=== PATIENT | female | born 1985 | race Caucasian/White ===

== ENCOUNTER 2016-12-10 09:27 | Emergency (ER) | payer OTHER ==
[2016-12-10 09:32] VITALS: TEMP 97.7; BMI 29.8
--- NOTE | 2016-12-10 09:36 | PDOC ---
History of Present Illness - General Chief Complaint: Labor Assessment Stated Complaint: 30WKS PRESSURE ABDM - History of Present Illness Initial Comments: 12/10/16 14:20 Patient seen in triage, 30 weeks with lower abdominal pressure, no other complaints, not ill. Patient's OB is not on staff here. Patient states that she has had no problems with the . Patient is medically stable and cleared to be seen in the OB Department Past History - Past Medical History Allergies/Adverse Reactions: Allergies Allergy/AdvReac Type Severity Reaction Status Date / Time No Known Allergies Allergy Verified 12/10/16 09:32 Home Medications: Ambulatory Orders NK [No Known Home Medication] 07/04/16 Vit/Iron Fumarate/FA [ Tablet] 1 each PO DAILY 07/04/16 Other medical history: NONE - Psycho/Social/Smoking Cessation Hx Anxiety: No Suicidal Ideation: No Smoking Status: Yes Smoking History: Never smoked Have you smoked in the past 12 months: Yes Number of Cigarettes Smoked Daily: 2 If you are a former smoker, when did you quit?: 3 mths ago 'Breaking Loose' booklet given: 07/07/15 Hx Alcohol Use: No Drug/Substance Use Hx: No Substance Use Type: None *Physical Exam - Vital Signs Last Vital Signs Temp Pulse Resp BP Pulse Ox 97.7 F 84 20 114/68 99 12/10/16 09:30 12/10/16 09:30 12/10/16 09:30 12/10/16 09:30 12/10/16 09:30 *DC/Admit/Observation/Transfer Diagnosis at time of Disposition: Premature labor - Discharge Dispostion Disposition: HOME Condition at time of disposition: Stable - Referrals Referrals: Zack Mason MD [Staff Physician] - - Patient Instructions Additional Instructions: Patient from ED c/o supra-pubic pressure. Ve by reveals a closed cx. BPP 02/27. D/c patient home as per . Instruction given as to when to return to hospital. Keep f/u apt. Patient verbalized understanding. Print Language: SYRIAC
[2016-12-10 12:25] VITALS: BP 110/66; PULSE 93
== END 2016-12-10 12:50 | disposition home or self-care (01) ==
LOC: JER 09:27
DX: O60.03 Preterm labor without delivery, third trimester (principal); Z3A.30 30 weeks gestation of pregnancy
CPT/HCPCS: 76819-TC; 99281-25

== ENCOUNTER 2017-02-08 05:52 | Inpatient (IN) | payer OTHER ==
[2017-02-08 06:55] VITALS: BMI 30.7
[2017-02-08] MEDS ORDERED: ELECTROLYTE-148 SOLN 1,000 ML IV ONE (07:00)
[2017-02-08] MEDS ORDERED: morphine SULFATE/Preservative Free 0.5 MG/ML (1cc Syringe) EP ONE (07:55)
[2017-02-08] MEDS ORDERED: ONDANSETRON 4 MG/2 ML VIAL IVPB PRN (07:55)
[2017-02-08] MEDS ORDERED: CITRIC ACID/SODIUM CITRATE 30 ML UNIT-DOSE CUP PO ONE (08:00)
--- NOTE | 2017-02-08 08:11 | HP ---
Past Medical History - Primary Care Physician PCP:: Vilma Willis - Admission Chief Complaint: 31 yrs , 39 weeks , previous c/sx2, requests repeat c/s & tubal ligation History of Present Illness: pnc transferred from [facility] to [address] [place] [address] wt gain 5lbs Work Up O Pos, Rpr nr, Hbsag neg,Hep C neg, Rubella pos,, Gbs pos, Hiv neg Ppd unknown, 1hr Gtt 57, AFP test neg. Genetic Counselling done , declined NIPT Growth sono done at [facility] Last sono done at [facility] mf off, on 01/22/17 reported SLIUP Vx, Plaenta Post 36.4/ 7 weeks , 38%tile growth(2657gm), Bpp 02/27 History Source: Patient, Medical Record Limitations to Obtaining History: No Limitations - Past Medical History ELECTRONICS TESTER: No: Migraine, Seizure Cardiovascular: No: HTN Pulmonary: No: Asthma Renal/: No: UTI ...: 5 ...Para: 2 ...Term: 2 ...Induced : 2 ...LMP: 04/20/16 ... Weeks Gestation by Dates: 42 ...EDC by Dates: 01/25/17 ...EDC by Sono: 02/15/17 Additional OB History: G1 1999 Ind Ab. G2 03/23/2008 Primary C/Section 6''4 "girl, [facility]. G3 2008 Ind Ab. G4 02/26/2013 Repeat C/Sect 7'7" girl [facility]. Note : patient has different OB history documented at [facility] places in the chart, (2 c/s , 2 ind ab, 1 sp ab , or (2 c/s 3 ind ab , 1 sp ab ) Heme/Onc: Yes: Anemia Infectious Disease: No: AIDS, HIV, STD's Psych: No: Addictions, Anxiety, Bipolar, Depression Endocrine: No: Diabetes Insipidus, Diabetes Mellitus, Hyperparathyroidism, Hyperthyroidism, Hypothyroidism - Past Surgical History Past Surgical History: Yes: None, (2007 & 2012), Tonsillectomy ( adenectomy, myringotomy) Hx Myomectomy: No Hx Transabdominal Cerclage: No - Smoking History Smoking history: Never smoked Have you smoked in the past 12 months: No Aproximately how many cigarettes per day: 2 If you are a former smoker, when did you quit?: 3 mths ago - Alcohol/Substance Use Hx Alcohol Use: No History of Substance Use: reports: None Home Medications - Allergies Allergies/Adverse Reactions: Allergies Allergy/AdvReac Type Severity Reaction Status Date / Time tomato Allergy Severe Hives Verified 02/08/17 06:56 - Home Medications Home Medications: Ambulatory Orders NK [No Known Home Medication] 07/04/16 Vit/Iron Fumarate/FA [ Tablet] 1 each PO DAILY 07/04/16 Physical Exam - Maternity Vital Signs: Vital Signs Temperature 97.8 F 02/08/17 06:30 Pulse Rate 88 02/08/17 06:30 Respiratory Rate 18 02/08/17 06:30 Blood Pressure 118/59 02/08/17 06:30 O2 Sat by Pulse Oximetry (%) Selected Entries 02/08/17 06:30 Weight 190 lb Constitutional: Yes: Well Nourished Eyes: Yes: WNL HENT: Yes: WNL, Normocephalic Neck: Yes: WNL Cardiovascular: Yes: WNL, Regular Rate and Rhythm Lungs: Clear to auscultation Breast(s): Yes: WNL - Abdominal Exam/OB Fundal Height: 40 Number of Fetuses: Single Presentation: Vertex Contractions: Yes Regularity: Irregular Intensity: Unaware Monitor Mode: External Heart Rate (range): 130-140 Heart Rate Location: [facility] Category: I Accelerations: Uniform - Vaginal Exam/OB Vaginal Bleediing: No Dilatation (cm): close Effacement (%): unefface Presentation: Vertex/Position Station: -3 - Physical Exam Musculoskeletal: Yes: WNL Extremities: Yes: WNL. No: Calf Tenderness Edema: Yes Edema: RLE: 1+ Integumentary: Yes: WNL, Incision (old pfannensteil scar), Tattoos Deep Tendon Reflex Grade: Normal +2 ...Motor Strength: WNL Psychiatric: Yes: WNL, Alert, Oriented - Labs Lab Results: Laboratory Tests 06/05/11 06/05/11 02/05/17 22:45 22:45 13:51 WBC 8.0 Hgb 12.2 Hct 36.7 Plt Count 126 L D Lymphocytes # 16.7 D INR Serum Potassium 4.0 Sodium Potassium Chloride Carbon Dioxide BUN Creatinine Random Glucose AST ALT 02/05/17 02/05/17 13:51 13:51 WBC Hgb Hct Plt Count Lymphocytes # INR 1.01 Serum Potassium Sodium 136 Potassium 3.7 Chloride 104 Carbon Dioxide 22 BUN 8 Creatinine 0.6 Random Glucose 84 AST 13 L D ALT 14 D Problem List - Problems (1) with 39 completed weeks gestation Code(s): Z3A.39 - 39 WEEKS GESTATION OF (2) Previous section complicating Code(s): O34.219 - MATERNAL CARE FOR UNSP TYPE SCAR FROM PREVIOUS DEL (3) Positive GBS test Code(s): B95.1 - STREPTOCOCCUS, GROUP B, CAUSING DISEASES CLASSD ELSWHR (4) Multiparity Code(s): Z64.1 - PROBLEMS RELATED TO MULTIPARITY Assessment/Plan 31 yrs , 39 weeks , previous c/s x2 , requests for repeat c/s & voluntory sterlization Gbs pos plan ; repeat c/section & BTL
[2017-02-08] MEDS ORDERED: METHYLERGONOVINE MALEATE 0.2 MG/1 ML AMP IM PRN (10:03)
--- NOTE | 2017-02-08 10:13 | PN ---
Delivery - Delivery Section: Repeat, Low Flap Transverse (BTL) Type of Anesthesia: Spinal Episiotomy/Laceration: None EBL (cc): 500 (zaman output 200 ml amelia color ) Delivery, Single - Stages of Labor Date of Delivery: 02/08/17 Time of Delivery: 08:29 Time Placenta Delivered: 08:30 Placenta: Yes: Manual Removal, Uterine Exploration - Condition of Infant Telecommunications Support/Downstairs Maid Present: Yes Name: Dave Gifford Gender: Male Weight: 6 lb 14 oz Position: Left, OT Total Hours ROM (Hrs/Mins): 0hrs 2min - 1 Minute Total Score: 9 5 Minutes Total Score: 9 - [place] Feeding Plan Initial Plan: Elected not to breastfeed exclusively throughout hospitalization Remarks - Remarks Remarks: 31 yrs , 39 weeks , Previous c/s x2, requests Voluntary sterilization Gbs test pos care transferred from [facility] to [address] Intra op course uneventful iv Ancef 1 gm intra op given
--- NOTE | 2017-02-08 10:20 | OP ---
Operative Note - Note: Operative Date: 02/08/17 Pre-Operative Diagnosis: 39 weeks , previous c/sx2, vountary Sterlization Operation: Repeat LFTC/Section & BTL Findings: 8.29 AM , baby Boy, Vx LOT position, 9/9, Wt 6'14' Both tubes & ovaries normal Both tubes ligated , cut cauterized by Modified [place] technique in mid ampulary portion of tubes Dr Gifford Remediation Project Engineer present in the room Surgeon: Vilma Willis Clinical Neuropsychologist: Isaiah Rubio Anesthesiologist/SENIOR UI UX DEVELOPER: Truong Campos Anesthesia: Spinal Specimens Removed: Cord blood. Placenta. Portion of Rt tube. Portion of Lt Tube Estimated Blood Loss (mls): 500 Drains, Volume Out (mls): 200 (amelia color , zaman out put ) Fluid Volume Replaced (mls): 1,000 (iv Ancef1 gm prior to incision) Operative Report Dictated: Yes
[2017-02-08] MEDS ORDERED: TUBERCULIN PPD 5 TU/0.1ML SYRINGE (IN PATIENT USE ONLY) ID ONE (13:00)
[2017-02-08] MEDS ORDERED: OXYTOCIN 20 UNITS in 0.9% NS 1,000 ML IV SCH (16:15)
[2017-02-08] MEDS: CEFAZOLIN (PRE-DOCKED) 50 ML IVPB SCH (17:23)
[2017-02-08] MEDS: IBUPROFEN 800 MG/8 ML IJ IVPB PRN (18:14)
[2017-02-08] MEDS ORDERED: SENNOSIDES/DOCUSATE COMBO (SENNA PLUS) TABLET (UD) PO PRN (22:00)
[2017-02-09] MEDS: CEFAZOLIN (PRE-DOCKED) 50 ML IVPB SCH ×2 (01:20→09:23)
[2017-02-09] MEDS: IBUPROFEN 800 MG/8 ML IJ IVPB PRN (01:20)
[2017-02-09 08:01] LABS: BASOPHIL 0.4 % (0-2.0); EOSINOPHIL 1.7 % (0-4.5); MCH 30.2 pg (25.7-33.7); MCHC 33.5 g/dl (32.0-36.0); MEAN CELL VOLUME 90.2 fl (80-96); NEUTROPHILS 73.4 % (42.8-82.8); PLATELET COUNT 91 K/MM3 (134-434); RDW 15.3 % (11.6-15.6); WHITE BLOOD COUNT 9.4 K/mm3 (4.0-10.0)
--- NOTE | 2017-02-09 08:12 | PN ---
Progress Note (short form) - Note Progress Note: pod 1 doing well,has mild cramps Last Vital Signs Temp Pulse Resp BP Pulse Ox 97.9 F 83 18 117/57 100 02/09/17 07:42 02/09/17 07:42 02/09/17 07:56 02/09/17 07:42 02/08/17 10:05 abdomen soft, mild incisional tenderness , no cva incision dry, clean no calf tenderness no excess vaginal bleeding plan ambulate, cbc, advance diet
--- NOTE | 2017-02-09 08:23 | OP ---
DATE OF OPERATION: 02/08/2017 PREOPERATIVE DIAGNOSIS: 39 weeks, previous section x2, voluntary sterilization. OPERATION DONE: Repeat low-flap transverse section and bilateral tubal ligation. SURGEON: Vilma Willis MD EXCHANGE MECHANIC SURGEON: BREN Gaines ANESTHESIOLOGIST: Lalito Campos MD ANESTHESIA: Spinal. FINDINGS: This is a 31-year-old, 5, para 2-0-2-2, 39 weeks , not in labor, and she also requests for sterilization. PROCEDURE: Patient is taken to the operating room table. Abdi catheter was placed. The abdomen was painted and draped in usual manner. Spinal anesthesia was given. Prior to the spinal anesthesia, abdomen was shaved and prepped. After prepping and draping the abdomen, the level of anesthesia was checked, and then, the Pfannenstiel incision was made through previous scar, skin and subcutaneous tissue. Anterior rectus sheath was incised transversely, and rectus muscles were laterally. Parietal peritoneum was opened vertically. Lower flap of the peritoneum was incised transversely, and the bladder was pushed down. Lower uterine segment was incised transversely. Amniotic fluid was cleared. Baby was delivered at 8:29 a.m. from LOT position, baby boy. was 9, 9. Cord was clamped, cut, and the baby was handed over to Dr. Gifford, the condenser setter. Baby's weight was 6 pounds 14 ounces. Cord blood was collected. Placenta was removed completely with the membranes. Uterine cavity was cleaned, and then, the closure of the uterine incision was done. First layer was closed with Biosyn 0 continuous locking sutures were taken. Second layer was closed with a Biosyn 0 suture in intermittent locking in vertical mattress sutures were taken. Hemostasis was verified, and then, both the ovaries were normal. Both tubes were normal. First right tube and then the left tube were ligated in the mid-ampullary portion. The tube was doubly ligated with a plain 2-0 suture, and then, above the ligature, the portion of the tube was cut and sent for pathology examination, and the endosalpinx was cauterized. Hemostasis was noted, and this procedure was done on both sides. Portion of the tube was sent for pathology examination. Irrigation was done, and then, the sponge, instrument, and needle count was correct. Closure of the abdomen was done. Parietal peritoneum was closed with a Biosyn 0. Continuous sutures were taken. Then, muscles were approximated together with Biosyn 0 interrupted sutures. Hemostasis was checked underneath the rectus sheath flap. Also, hemostasis was verified. Then, anterior rectus sheath was closed with 0 Vicryl suture. Continuous sutures were taken. Then, hemostasis was checked in the subcutaneous tissue. Subcutaneous tissue was mobilized from the scar from the incision, and then, the subcutaneous tissue was also approximated with interrupted sutures with Vicryl 0 suture. Hemostasis was noted and subcutaneous tissue irrigation done. Then, the skin was approximated with karen. Pressure dressing was given. Blood clots were removed from the vagina. Estimated blood loss was 500 mL. Intraoperative urine output was 200 mL, amelia color. She received 1 g of IV Ancef prior to the incision, and estimated blood loss was 500 mL. She was transferred to the recovery room in stable condition. Patricia [id number]
[2017-02-09] MEDS: PRENATAL VITAMINS W/ FOLIC ACID TABLET (FP) PO SCH (09:23)
[2017-02-09] MEDS: ENOXAPARIN NA (PORCINE) 40 MG/0.4 ML DISP.SYRIN SQ SCH (09:23)
--- NOTE | 2017-02-09 09:25 | PN ---
Progress Note (short form) - Note Progress Note: ANESTHESIOLOGY POST-OP CHECK 31F s/p under spinal anesthesia, POD #1. No acute complaints. Pain 5/ 10 and tolerable. Tolerating PO, ambulating, voiding, denies N/V, headache. Vital Signs Temperature 97.9 F 02/09/17 07:42 Pulse Rate 83 02/09/17 07:42 Respiratory Rate 18 02/09/17 07:56 Blood Pressure 117/57 02/09/17 07:42 O2 Sat by Pulse Oximetry (%) 100 02/08/17 10:05 Active Medications Acetaminophen (Tylenol -) 650 mg PO Q4H PRN PRN Reason: FEVER OR PAIN Bisacodyl (Dulcolax Suppository -) 10 mg RC PRN PRN PRN Reason: CONSTIPATION Diphenhydramine HCl (Benadryl Injection -) 25 mg IVPUSH Q4H PRN PRN Reason: Pruritis Last Admin: 02/08/17 22:35 Dose: 25 mg Enoxaparin Sodium (Lovenox -) 40 mg SQ DAILY HELGA Last Admin: 02/09/17 09:23 Dose: 40 mg Ferrous Sulfate (Feosol -) 325 mg PO BID HELGA Cefazolin Sodium (Ancef 1gm Ivpb (Pre-Docked)) 50 mls @ 100 mls/hr IVPB Q8H-IV HELGA Stop: 02/09/17 17:59 Last Admin: 02/09/17 09:23 Dose: 100 mls/hr Oxytocin/Sodium Chloride (Normal Saline+20 Units Oxytocin -) 1,000 mls @ 125 mls/hr IV ASDIR HELGA Last Admin: 02/08/17 17:23 Dose: 125 mls/hr Ibuprofen (Caldolor Injection -) 600 mg IVPB Q8H PRN PRN Reason: FEVER Last Admin: 02/09/17 01:20 Dose: 600 mg Ibuprofen (Motrin -) 600 mg PO Q4H PRN PRN Reason: PAIN Methylergonovine Maleate (Methergine Injection -) 0.2 mg IM Q4H PRN PRN Reason: Excessive Bleeding (L&D) Oxycodone HCl (Roxicodone -) 5 mg PO Q4H PRN PRN Reason: PAIN LEVEL 1-5 Oxycodone HCl (Roxicodone -) 10 mg PO Q4H PRN PRN Reason: PAIN LEVEL 6-10 Multivit/Folic Acid/Iron ( Vitamins (Sjr) -) 1 tab PO DAILY HELGA Last Admin: 02/09/17 09:23 Dose: 1 tab Senna/Docusate Sodium (Pericolace -) 2 tablet PO HS PRN PRN Reason: CONSTIPATION Simethicone (Mylicon -) 80 mg PO Q4H PRN PRN Reason: GAS Gen: awake, alert, NAD No apparent anesthesia complications. Pain controlled. Continue management as per primary team.
[2017-02-09] MEDS ORDERED: oxyCODONE HCL 5 MG TABLET PO PRN (10:03)
[2017-02-09] MEDS ORDERED: BISACODYL 10 MG SUPP.RECT RC PRN (10:03)
[2017-02-09] MEDS: SIMETHICONE 80 MG TAB.CHEW (FP) PO PRN ×2 (13:12→21:43)
[2017-02-09] MEDS: IBUPROFEN 600 MG TABLET (FP) PO PRN (13:13)
--- NOTE | 2017-02-09 18:17 | DS ---
Physical Exam-COTTON PICKER OPERATOR Vital Signs: Vital Signs Temperature 97.9 F 02/09/17 07:42 Pulse Rate 83 02/09/17 07:42 Respiratory Rate 18 02/09/17 07:56 Blood Pressure 117/57 02/09/17 07:42 O2 Sat by Pulse Oximetry (%) 100 02/08/17 10:05 Constitutional: Yes: Well Nourished, Obese Eyes: Yes: WNL HENT: Yes: WNL, Normocephalic Neck: Yes: WNL Cardiovascular: Yes: WNL, Regular Rate and Rhythm Respiratory: Yes: WNL, Regular, CTA Bilaterally Gastrointestinal: Yes: WNL, Normal Bowel Sounds, Soft. No: Distention ...Rectal Exam: Yes: WNL Renal/: Yes: WNL, Other (voiding without difficulty) ....Post : Yes: Uterus firm, Uterus non-tender, Moderate lochia rubra Breast(s): Yes: WNL Musculoskeletal: Yes: WNL Extremities: Yes: WNL. No: Calf Tenderness Integumentary: Yes: WNL, Tattoos Wound/Incision: Yes: Clean/Dry, Well Approximated, [place] Intact, Open to air Neurological: Yes: WNL, Alert, Oriented ...Motor Strength: WNL Psychiatric: Yes: WNL, Alert, Oriented Labs: CBC, BMP 02/09/17 06:00 Delivery - Delivery Section: Repeat, Low Flap Transverse (BTL) Type of Anesthesia: Spinal Episiotomy/Laceration: None EBL (cc): 500 (zaman output 200 ml amelia color ) Delivery, Single - Stages of Labor Date of Delivery: 02/08/17 Time of Delivery: 08:29 Time Placenta Delivered: 08:30 Placenta: Yes: Manual Removal, Uterine Exploration - Condition of Infant Cash Applications Analyst/Stitcher Utility Present: Yes Name: Dave Gifford Gender: Male Weight: 6 lb 14 oz Position: Left, OT Total Hours ROM (Hrs/Mins): 0hrs 2min - 1 Minute Total Score: 9 5 Minutes Total Score: 9 - [place] Feeding Plan Initial Plan: Elected not to breastfeed exclusively throughout hospitalization Remarks - Remarks Remarks: 31 yrs , 39 weeks , Previous c/s x2, requests Voluntary sterilization Gbs test pos care transferred from [facility] to , [facility] Intra op course uneventful iv Ancef 1 gm intra op given post op course uneventful to be discharge on po day #4 Discharge Summary Reason For Visit: SCHEDULE C/SECTION Current Active Problems Delivery by (planned) section occurring after 37 completed weeks of gestation but before 39 completed weeks gestation due to (spontaneous) onset of labor, with mention of complication (Acute) Multiparity (Acute) Positive GBS test (Acute) with 39 completed weeks gestation (Acute) Previous section complicating (Acute) Tubal ligation status (Acute) - Instructions Diet, Activity, Other Instructions: Post Instructions DIET: Continue good diet high in protein, calcium, and iron rich foods. Drink at least eight (8) glasses of water daily in addition to other fluids. ct Regular diet MEDICATIONS: Continue vitamins and iron as previously directed. Motrin and Tylenol may be taken for minor discomfort. ACTIVITY: Mild to moderate exercise may be started in two (2) weeks. Take frequent rest periods. Resume normal activity after six (6) week check up. WOUND CARE OF OPERATIVE SITE: Continue use of perineal bottle until vaginal discharge stops. Keep area clean. Shower daily. Keep abdominal wound dry. Report any drainage or redness to physician. Tub baths, tampons and douches are not permitted for [address] Breast feeding & or Bottle feeding BREAST CARE: (For those that are not breast feeding): If engorgement occurs: Wear tight fitting bra. Take Tylenol or Motrin for pain. Apply cold packs (ice in bags to each breast ) FAMILY PLANNING: There are many control alternatives to pursue and they should be discussed at your first office visit. You may resume sexual activity after your six (6) week check up. (Remember, breast feeding is not a contraceptive) NEXT PHYSICIAN APPOINTMENT: Be certain to call for a one (1) week appointment, unless otherwise directed. Go to the clinic for karen Removal & wound check Call Clinic or got to Emergency Dept if you have any of the following: Heavy vaginal bleeding Painful urination Leg pain Unusual odor noted to vaginal bleeding High fever Red streaking noted on breast Referrals: Vilma Willis MD [Staff Physician] - - Home Medications Comprehensive Discharge Medication List: Ambulatory Orders Vit/Iron Fumarate/FA [ Tablet] 1 each PO DAILY 07/04/16 Acetaminophen [Tylenol .Regular Strength -] 650 mg PO Q4H PRN #0 tablet Ibuprofen [Motrin -] 600 mg PO Q4H PRN #30 tablet 02/08/17 Vitamins (Sjr) - 1 tab PO DAILY tablet 02/08/17
[2017-02-09] MEDS: oxyCODONE HCL 5 MG TABLET PO PRN (21:43)
[2017-02-09] MEDS: FERROUS SO4 325 MG TABLET (FP) PO SCH (21:43)
[2017-02-09] MEDS: ACETAMINOPHEN 325 MG TABLET (FP) PO PRN (21:44)
[2017-02-10] MEDS: IBUPROFEN 600 MG TABLET (FP) PO PRN (00:03)
[2017-02-10] MEDS: oxyCODONE HCL 5 MG TABLET PO PRN ×3 (03:52→19:58)
[2017-02-10] MEDS: ACETAMINOPHEN 325 MG TABLET (FP) PO PRN ×3 (03:53→19:59)
[2017-02-10] MEDS: SIMETHICONE 80 MG TAB.CHEW (FP) PO PRN ×3 (03:53→19:59)
--- NOTE | 2017-02-10 07:59 | PN ---
Post Progress Note - Subjective Subjective: 31 yo Para 3 status post repeat , seen and evaluated. Doing well, no complaints. Post Day: 2 Type of Delivery: Repeat C/S Vital Signs: Vital Signs Temperature 98.7 F 02/09/17 22:00 Pulse Rate 96 H 02/09/17 22:00 Respiratory Rate 18 02/09/17 22:00 Blood Pressure 102/61 02/09/17 22:00 O2 Sat by Pulse Oximetry (%) 100 02/08/17 10:05 Breast Exam: Yes: Soft Abdomen/GI: Yes: Abdomen soft, Tolerating PO Lochia: Yes: Rubra Lochia, amount: Small Extremities: Yes: Calves non-tender Perineum: Yes: Intact Activity: Ambulating - Labs Labs: CBC WBC 9.4 K/mm3 (4.0-10.0) 02/09/17 06:00 RBC 3.80 M/mm3 (3.60-5.2) 02/09/17 06:00 Hgb 11.5 GM/dL (10.7-15.3) 02/09/17 06:00 Hct 34.3 % (32.4-45.2) 02/09/17 06:00 MCV 90.2 fl (80-96) 02/09/17 06:00 MCH 30.2 pg (25.7-33.7) 02/09/17 06:00 MCHC 33.5 g/dl (32.0-36.0) 02/09/17 06:00 RDW 15.3 % (11.6-15.6) 02/09/17 06:00 Plt Count 91 K/MM3 (134-434) L D 02/09/17 06:00 MPV 11.0 fl (7.5-11.1) 02/09/17 06:00 Neutrophils % 73.4 % (42.8-82.8) 02/09/17 06:00 Lymphocytes % 17.5 % (8-40) D 02/09/17 06:00 Monocytes % 7.0 % (3.8-10.2) 02/09/17 06:00 Eosinophils % 1.7 % (0-4.5) 02/09/17 06:00 Basophils % 0.4 % (0-2.0) 02/09/17 06:00 Assessment/Plan Status post repeat Stable Continue routine Postop care
[2017-02-10] MEDS: ENOXAPARIN NA (PORCINE) 40 MG/0.4 ML DISP.SYRIN SQ SCH (09:50)
[2017-02-10] MEDS: PRENATAL VITAMINS W/ FOLIC ACID TABLET (FP) PO SCH (09:50)
[2017-02-10] MEDS: FERROUS SO4 325 MG TABLET (FP) PO SCH ×2 (09:52→22:00)
[2017-02-11] MEDS: SIMETHICONE 80 MG TAB.CHEW (FP) PO PRN ×4 (00:30→21:14)
[2017-02-11] MEDS: ACETAMINOPHEN 325 MG TABLET (FP) PO PRN ×4 (00:30→21:15)
[2017-02-11] MEDS: oxyCODONE HCL 5 MG TABLET PO PRN ×2 (00:30→06:43)
[2017-02-11 08:39] LABS: BASOPHIL 0.5 % (0-2.0); EOSINOPHIL 3.7 % (0-4.5); MCH 29.9 pg (25.7-33.7); MCHC 32.8 g/dl (32.0-36.0); MEAN CELL VOLUME 90.9 fl (80-96); MEAN PLT VOLUME 11.8 fl (7.5-11.1); NEUTROPHILS 58.9 % (42.8-82.8); PLATELET COUNT 107 K/MM3 (134-434); RDW 15.6 % (11.6-15.6); WHITE BLOOD COUNT 8.2 K/mm3 (4.0-10.0)
--- NOTE | 2017-02-11 08:50 | PN ---
Post Progress Note - Subjective Subjective: 31 yo Para 3, status post repeat , seen and evaluated. She c/o incision pain. She's ambulating. Post Day: 3 Type of Delivery: Repeat C/S Vital Signs: Vital Signs Temperature 98.9 F 02/10/17 20:20 Pulse Rate 94 H 02/10/17 20:20 Respiratory Rate 20 02/10/17 20:20 Blood Pressure 110/67 02/10/17 20:20 O2 Sat by Pulse Oximetry (%) 100 02/08/17 10:05 Breast Exam: Yes: Soft Uterus: Yes: Fundus Firm Incision: Yes: [place] intact Abdomen/GI: Yes: Abdomen soft, Tolerating PO Lochia: Yes: Rubra Lochia, amount: Small Extremities: Yes: Calves non-tender Perineum: Yes: Intact Activity: Ambulating - Labs Labs: CBC WBC 8.2 K/mm3 (4.0-10.0) 02/11/17 07:45 RBC 3.61 M/mm3 (3.60-5.2) 02/11/17 07:45 Hgb 10.8 GM/dL (10.7-15.3) 02/11/17 07:45 Hct 32.8 % (32.4-45.2) 02/11/17 07:45 MCV 90.9 fl (80-96) 02/11/17 07:45 MCH 29.9 pg (25.7-33.7) 02/11/17 07:45 MCHC 32.8 g/dl (32.0-36.0) 02/11/17 07:45 RDW 15.6 % (11.6-15.6) 02/11/17 07:45 Plt Count 107 K/MM3 (134-434) L 02/11/17 07:45 MPV 11.8 fl (7.5-11.1) H 02/11/17 07:45 Neutrophils % 58.9 % (42.8-82.8) 02/11/17 07:45 Lymphocytes % 30.4 % (8-40) D 02/11/17 07:45 Monocytes % 6.5 % (3.8-10.2) 02/11/17 07:45 Eosinophils % 3.7 % (0-4.5) D 02/11/17 07:45 Basophils % 0.5 % (0-2.0) 02/11/17 07:45 Assessment/Plan Status post repeat Stable Continue routine Postop care
[2017-02-11] MEDS: PRENATAL VITAMINS W/ FOLIC ACID TABLET (FP) PO SCH (10:10)
[2017-02-11] MEDS: ENOXAPARIN NA (PORCINE) 40 MG/0.4 ML DISP.SYRIN SQ SCH (10:10)
[2017-02-11] MEDS: FERROUS SO4 325 MG TABLET (FP) PO SCH ×2 (10:11→21:05)
[2017-02-11] MEDS: IBUPROFEN 600 MG TABLET (FP) PO PRN ×2 (14:21→21:15)
[2017-02-12] MEDS: PRENATAL VITAMINS W/ FOLIC ACID TABLET (FP) PO SCH (10:11)
[2017-02-12] MEDS: FERROUS SO4 325 MG TABLET (FP) PO SCH (10:11)
[2017-02-12] MEDS: ENOXAPARIN NA (PORCINE) 40 MG/0.4 ML DISP.SYRIN SQ SCH (10:11)
--- NOTE | 2017-02-12 10:19 | PN ---
Post Progress Note - Subjective Subjective: 31 yo status post repeat , seen and evaluated. She requests staple removal before discharge. Osbaldo removed Steri strips placed PE : + partial open wound on the right side No signs of infection + incision pain A/P : Status post repeat Stable D/C Home F/U in clinic in one week for wound care Post Day: 4 Type of Delivery: Repeat C/S Vital Signs: Vital Signs Temperature 98.0 F 02/11/17 21:04 Pulse Rate 70 02/11/17 21:04 Respiratory Rate 20 02/11/17 21:04 Blood Pressure 125/64 02/11/17 21:04 O2 Sat by Pulse Oximetry (%) 100 02/08/17 10:05 Breast Exam: Yes: Soft Uterus: Yes: Fundus Firm Incision: Yes: Other (Osbaldo removed) Lochia: Yes: Rubra Lochia, amount: Small Extremities: Yes: Calves non-tender Perineum: Yes: Intact Activity: Ambulating - Labs Labs: CBC WBC 8.2 K/mm3 (4.0-10.0) 02/11/17 07:45 RBC 3.61 M/mm3 (3.60-5.2) 02/11/17 07:45 Hgb 10.8 GM/dL (10.7-15.3) 02/11/17 07:45 Hct 32.8 % (32.4-45.2) 02/11/17 07:45 MCV 90.9 fl (80-96) 02/11/17 07:45 MCH 29.9 pg (25.7-33.7) 02/11/17 07:45 MCHC 32.8 g/dl (32.0-36.0) 02/11/17 07:45 RDW 15.6 % (11.6-15.6) 02/11/17 07:45 Plt Count 107 K/MM3 (134-434) L 02/11/17 07:45 MPV 11.8 fl (7.5-11.1) H 02/11/17 07:45 Neutrophils % 58.9 % (42.8-82.8) 02/11/17 07:45 Lymphocytes % 30.4 % (8-40) D 02/11/17 07:45 Monocytes % 6.5 % (3.8-10.2) 02/11/17 07:45 Eosinophils % 3.7 % (0-4.5) D 02/11/17 07:45 Basophils % 0.5 % (0-2.0) 02/11/17 07:45 Assessment/Plan Status post repeat Stable D/C Home
[2017-02-12] MEDS ORDERED: diphenhydrAMINE HCL 25 MG CAPSULE (FP) PO ONE (10:20)
[2017-02-12 10:32] VITALS: BP 114/78; PULSE 84; TEMP 98.3
--- NOTE | 2017-02-12 16:02 | PATH ---
Surgical Pathology Report Patient Name: TERI OLSEN [facility]. Rec. #: [id number] /Age/Gender: 1985 (Age: 31) / F Account: [id number] Location: [facility] OBS/DIRECTOR OF RESIDENCE LIFE Taken: 02/08/2017 Received: 02/09/2017 Reported: 02/12/2017 Physicians: Vilma Willis M.D. Specimen(s) Received A: PLACENTA B: PORTION OF LEFT FALLOPIAN TUBE C: PORTION OF RIGHT FALLOPIAN TUBE Clinical History Final Diagnosis A. PLACENTA, DELIVERY: SMALL (368 GRAM) FOCALLY DISRUPTED THIRD TRIMESTER PLACENTA WITH INTERVILLOUS FIBRIN DEPOSITION, 3 VESSEL UMBILICAL CORD, AND UNREMARKABLE PLACENTAL MEMBRANES. B. LEFT FALLOPIAN TUBE, PARTIAL SALPINGECTOMY: FULL LUMINAL PORTION OF UNREMARKABLE FALLOPIAN TUBE C. RIGHT FALLOPIAN TUBE, PARTIAL SALPINGECTOMY: FULL LUMINAL PORTION OF UNREMARKABLE FALLOPIAN TUBE. Electronically Signed Elier Hearn M.D. Gross Description A. The specimen is received fresh labeled placenta and is a 368 gram, 16.5 x 15.0 x 2.0 cm. placenta with attached membranes and umbilical cord. The attached membranes are abarca, translucent and focal opacities and insert marginally. The umbilical cord measures 30 cm. in length and averages 1.2 cm. in diameter. The cord inserts eccentrically, 3.5 cm. to the nearest margin. No true knots or strictures are identified. Cut surface of the umbilical cord reveals 3 vessels. The surface is rhodes-blue with minimal fibrin deposition and appropriate caliber vessels. The maternal surface is red-brown with focal defects. Sectioning reveals red-brown, spongy parenchyma. No lesions are identified. Coordinating Producer sections are submitted in three cassettes as follows: 1- membrane rolls and umbilical cord; 2-3- full thickness sections of placenta. B. Received fresh labeled "portion of left fallopian tube," is a 1.2 cm in length portion of fallopian tube. No fimbria are present. The outer surface is abarca-pink and smooth. Sectioning reveals unremarkable lumen. Coordinating Producer sections are submitted in one cassette. C. Received fresh labeled "portion of right fallopian tube," is a 1.4 cm in length portion of fallopian tube. No fimbria are present. The outer surface is abarca-pink and smooth. Sectioning reveals an unremarkable lumen. Coordinating Producer sections are submitted in one cassette. 02/09/2017 [facility]02/09/2017
== END 2017-02-12 11:30 | disposition home or self-care (01) | DRG 540 ==
LOC: JLDR 05:52 → J3W 10:33
PROVIDERS: ADMIT Obstetrics & Gynecology; ATTEND Obstetrics & Gynecology
PROC: 10D00Z1 Extraction of Products of Conception, Low, Open Approach (ICD-10-PCS; principal; 2017-02-08)
PROC: 0UL70ZZ Occlusion of Bilateral Fallopian Tubes, Open Approach (ICD-10-PCS; 2017-02-08)
DX: O34.211 Maternal care for low transverse scar from previous cesarean delivery (principal); O99.824 Streptococcus B carrier state complicating childbirth; Z3A.39 39 weeks gestation of pregnancy; Z37.0 Single live birth; Z30.2 Encounter for sterilization
CPT/HCPCS: 36415; 85025; 88302-TC; 88307-TC; 94010

== ENCOUNTER 2017-02-27 14:20 | Emergency (ER) | payer OTHER ==
[2017-02-27 14:28] VITALS: PULSE 79; TEMP 98.5; BMI 28.5
[2017-02-27] MEDS ORDERED: BACITRACIN 0.9 GM PACKET ONE (15:21)
--- NOTE | 2017-02-27 15:29 | PDOC ---
Attending Attestation - Resident Resident Name: ManojDario - ED Attending Attestation I have performed the following: I have examined & evaluated the patient, The case was reviewed & discussed with the resident, I agree w/resident's findings & plan, Exceptions are as noted - HPI HPI: 02/27/17 15:26 Agree with the resident's HPI as documented in the electronic medical record. - Physicial Exam PE: 02/27/17 15:27 Agree with the resident's physical examination as documented in the electronic medical record. - Medical Decision Making 02/27/17 15:27 31-year-old female 5 para 3032 status post on 02/08/2017 for repeat presents to the emergency department with a small amount of discharge from the right side of the scar with mild erythema that she noticed this morning when the Steri-Strips fell off. The wound does not appear to be infected with no purulent drainage. The erythema on the skin appears to be of a contact dermatitis nature. Plan: 1. Discharge home 2. Will communicate with computer repair technician 3. Local wound care with bacitracin 4. Will advise patient to follow-up with her computer repair technician and return to the emergency department if symptoms persist, worsen, or new symptoms arise.
--- NOTE | 2017-02-27 15:32 | PDOC ---
Rapid Medical Evaluation Chief Complaint: Revisit,Wound Recheck Time Seen by Provider: 02/27/17 15:04 Medical Evaluation: Allergies Allergy/AdvReac Type Severity Reaction Status Date / Time tomato Allergy Severe Hives Verified 02/27/17 14:25 Vital Signs Temp Pulse Resp BP Pulse Ox 98.5 F 79 18 108/64 99 02/27/17 14:25 02/27/17 14:25 02/27/17 14:25 02/27/17 14:25 02/27/17 14:25 02/27/17 15:29 Patient is a 41F with no pmh who delivered a healthy boy by on February 08 with tubal ligation by Dr Vilma Nguyen, presented to the ED for a wound check on the right edge of the scar. The steristrips fells off today and the patient noticed blood on them in the shower. Comes here today to make sure the wound isn't infected. Patient is afebrile, declines presence of chills, diaphoresis, nausea, vomiting. on examination RRR heart, clear lungs, abdomen non-tender. Wound is closed, clean, about 2cm some slight erythya around the surrounding skin and healing line in the center. No induration or fluctuence. PAtient given bacitracin oitment and gauze. f/u with obgyn if new or persisting symptoms. 02/27/17 16:04 02/27/17 16:11
[2017-02-27 16:16] VITALS: BP 121/65
== END 2017-02-27 16:16 | disposition home or self-care (01) ==
LOC: JER 14:20
DX: Z48.89 Encounter for other specified surgical aftercare (principal)
CPT/HCPCS: 99281-25

== ENCOUNTER 2017-12-27 10:48 | Emergency (ER) | payer OTHER ==
[2017-12-27 10:52] VITALS: BP 114/73; PULSE 85; TEMP 98.4; BMI 28.2
[2017-12-27] MEDS ORDERED: DEXAMETHASONE LIQUID 0.5 MG/5 ML 240 ML BULK BOTTLE PO ONE (11:57)
--- NOTE | 2017-12-27 11:57 | PDOC ---
History of Present Illness - History of Present Illness Initial Comments: 12/27/17 13:30 The patient is a 32 year old female, with a significant PMH of peritonsilar abscess, who presents to the emergency department with 3 days of sore throat. The patient states she went to Dr. Ellis (ENT) yesterday for evaluation and was diagnosed with strep throat and prescribed Penicillin antibiotics. The patient states that she was able to take the first dose of the penicillin yesterday but has been unable today secondary to pain while swallowing. The patient states she decided to come to the ED today secondary to worsening sore throat, chills and body aches. The patient states she has been around her sister and a co-worker who were recently diagnosed with strep throat. The patient also states she has a history of peritonsilar abscess 3 times in the past for which she went to [facility] for abscess drainage. The patient denies chest pain, shortness of breath, headache and dizziness. Denies fever, nausea, vomit, diarrhea and constipation. Denies dysuria, frequency, urgency and hematuria. Allergies: tomato <Zurdo William - Last Filed: 12/27/17 13:30> - General History Source: Patient Exam Limitations: No Limitations <Max Gerber - Last Filed: 12/27/17 14:07> - General Chief Complaint: Sore Throat Stated Complaint: THROAT PAIN Time Seen by Provider: 12/27/17 11:13 Past History <Zurdo William - Last Filed: 12/27/17 13:30> - Past Medical History Asthma: No Cancer: No Cardiac Disorders: No COPD: No DVT: No Diabetes: No HTN: No Seizures: No Thyroid Disease: No - Suicide/Smoking/Psychosocial Hx Smoking Status: Yes Smoking History: Former smoker Have you smoked in the past 12 months: No Number of Cigarettes Smoked Daily: 0 If you are a former smoker, when did you quit?: 1 year ago Information on smoking cessation initiated: No 'Breaking Loose' booklet given: 07/07/15 Hx Alcohol Use: No Drug/Substance Use Hx: No Substance Use Type: None Hx Substance Use Treatment: No <Max Gerber - Last Filed: 12/27/17 14:07> - Past Medical History Allergies/Adverse Reactions: Allergies Allergy/AdvReac Type Severity Reaction Status Date / Time tomato Allergy Severe Hives Verified 12/27/17 10:49 Home Medications: Ambulatory Orders Amox-Tr/K Cl [Augmentin 400 mg/5 ml Oral Suspension -] 10 ml PO BID #100 ml 02/06 Review of Systems - Review of Systems Comments:: 12/27/17 13:31 CONSTITUTIONAL: Present: (+) Chills. No reported: Fever, Diaphoresis, Generalized Weakness, Malaise, Loss of Appetite HEENT: Present: (+) Sore throat. (+) Pain with swallowing. No reported: Rhinorrhea, Nasal Congestion, Throat Swelling, Mouth Swelling, Ear Pain, Eye Pain, Visual Changes GASTROINTESTINAL: No reported: Abdominal pain, Nausea, Vomiting, Diarrhea, MUSCULOSKELETAL: Present: (+) Generalized body aches. No reported: Arthralgia, Joint Swelling, Back pain, Neck Pain SKIN: No reported: Rash, Itching, Pallor HEMEATOLOGIC/IMMUNOLOGIC: No reported: Easy Bleeding, Easy Bruising, Lymphadenopathy, Frequent infections ENDOCRINE: No reported: Unexplained Weight Gain, Unexplained Weight Loss, Heat Intolerance , Cold Intolerance NEUROLOGIC: No reported: Headache, Focal Weakness, Paresthesias, Vertigo, Lightheadedness, Unsteady Gait, Seizure, Mental Status Changes, Incontinence PSYCHIATRIC: No reported: Anxiety, Depression <Zurdo William - Last Filed: 12/27/17 13:30> *Physical Exam - Vital Signs Last Vital Signs Temp Pulse Resp BP Pulse Ox 98.4 F 85 18 114/73 100 12/27/17 10:49 12/27/17 10:49 12/27/17 10:49 12/27/17 10:49 12/27/17 10:49 - Physical Exam Comments: 12/27/17 13:31 GENERAL: The patient is awake, alert, and fully oriented, Nontoxic - in no acute distress. HEAD: Normocephalic, atraumatic. EYES: extraocular movements intact, sclera anicteric, conjunctiva clear. ENT: slightyl muffled voice, Moist mucous membranes. +mild peritonsillar fullness around R palantine arch, +approx 8x8mm mass palpable, no signs of uvular deviation, no airway obstruction. NECK: Normal range of motion, supple. n osigns of trismus. LUNGS: Breath sounds equal, clear to auscultation bilaterally. No wheezes, no rhonchi, no rales. HEART: Regular rate and rhythm, without murmur, rub or gallop. ABDOMEN: Soft, nontender, No guarding, no rebound.No CVA tenderness <Zurdo William - Last Filed: 12/27/17 13:30> - Vital Signs Last Vital Signs Temp Pulse Resp BP Pulse Ox 98.4 F 85 18 114/73 100 12/27/17 10:49 12/27/17 10:49 12/27/17 10:49 12/27/17 10:49 12/27/17 10:49 <Max Gerber - Last Filed: 12/27/17 14:07> ED Treatment Course - LABORATORY CBC & Chemistry Diagram: 12/27/17 11:55 12/27/17 11:55 <Zurdo William - Last Filed: 12/27/17 13:30> - LABORATORY CBC & Chemistry Diagram: 12/27/17 11:55 12/27/17 11:55 <Max Gerber - Last Filed: 12/27/17 14:07> Medical Decision Making - Medical Decision Making 12/27/17 12:00 Call placed to ENT Dr. Ellis. Call answered and discussed with covering physician Dr Mirza. <Zurdo William - Last Filed: 12/27/17 13:30> - Medical Decision Making 12/27/17 11:52 32y F hx of peritonsilar abscess presents with sore throat. The pt endorses pain is worse on the R throat. Pt saw ENT yeserday and had a scope, was dx with linguial tonsilitis, started on penvk, pt presents due to worsening pain and difficulty swallowing due to the pain. no fevers but pt endorss some chills. pt notes she was unable to take her medication due to the pain. on exam pt is in no distress airway is patent, minmal fullness of the R tonisilar arch with discrte nodule ( approx .8cm)no no tonsilar deviation voice is slightly muffled, pt tolerating her secretions suspect peritonsilar abcess case dw dr. mirza (covering for dr. diaz who saw her yeserday), agree w/ decadron, recommends f/u tomorrow. discussed rgarding possible drainage, but agrees likely too small to drain. will give viscous lido to patrica calloway lbas 12/27/17 12:48 labs unremarkable will dc with ENT fu as outpatient 12/27/17 13:58 dw pharmacist alayna - would recommend 10ml of 600mg suspension here and can dc w 400mg/5 ml bid at home <Max Gerber - Last Filed: 12/27/17 14:07> *DC/Admit/Observation/Transfer - Attestations Scribe Attestion: 12/27/17 12:01 Documentation prepared by Zurdo William, acting as medical pathology teacher for Max Gerber MD. <Zurdo William - Last Filed: 12/27/17 13:30> - Discharge Dispostion Decision to Admit order: No <Max Gerber - Last Filed: 12/27/17 14:07> Diagnosis at time of Disposition: Peritonsillar abscess - Discharge Dispostion Disposition: HOME Condition at time of disposition: Improved - Referrals Referrals: Elier Leonard [Primary Care Provider] - Sergey Ellis MD [Staff Physician] - - Patient Instructions Printed Discharge Instructions: DI for Peritonsillar Abscess -- Adult Additional Instructions: Return to the emergency department immediately with ANY new, persistent or worsening symptoms including difficulty swallowing, difficulty breathing, fevers , or other concerns. Please follow-up with your ENT doctor tomorrow for further evaluation. Take the antiobiotics as prescribed. You MUST call and follow up with Dr. Diaz tomorrow for further evaluation of your symptoms. Results were discussed with you. Please make sure your doctor reviews the results of your emergency evaluation. Print Language: BRITISH - Post Discharge Activity
[2017-12-27] MEDS ORDERED: LIDOCAINE VISCOUS 2% ORAL/TOP 20 ML UNIT-DOSE CUP MM ONE ×2 (11:58→13:36)
[2017-12-27 12:01] LABS: BASO % 0.7 % (0-2.0); EOS % 0.9 % (0-4.5); HEMATOCRIT 38.9 % (32.4-45.2); LYMPH % 21.7 % (8-40); MCH 30.1 pg (25.7-33.7); MCHC 33.5 g/dl (32.0-36.0); MEAN CELL VOLUME 89.7 fl (80-96); MEAN PLT VOLUME 10.4 fl (7.5-11.1); MONO % 8.8 % (3.8-10.2); NEUT % 67.9 % (42.8-82.8); PLATELET COUNT 169 K/MM3 (134-434); RBC 4.33 M/mm3 (3.60-5.2); RDW 13.7 % (11.6-15.6); WHITE BLOOD COUNT 8.1 K/mm3 (4.0-10.0)
[2017-12-27] MEDS ORDERED: LIDOCAINE VISCOUS 2% ORAL/TOP 20 ML UNIT-DOSE CUP ONE ×2 (12:16→13:43)
[2017-12-27] MEDS ORDERED: DEXAMETHASONE SOD PHOSPHATE 10 MG/1 ML VIAL ONE (12:17)
[2017-12-27 12:28] LABS: ALBUMIN 3.8 g/dl (3.4-5.0); ALK PHOS 75 U/L (45-117); ANION GAP 8 (8-16); BILIRUBIN,TOTAL 0.4 mg/dL (0.2-1.0); BLOOD UREA NITROGEN 11 mg/dL (7-18); CHLORIDE 104 mmol/L (98-107); CO2 24 mmol/L (21-32); CREATININE 0.7 mg/dL (0.55-1.02); GLUCOSE,RANDOM 89 mg/dL (74-106); POTASSIUM 3.8 mmol/L (3.5-5.1); SGOT/AST 17 U/L (15-37); SGPT/ALT 30 U/L (12-78); SODIUM 136 mmol/L (136-145); TOT PROT 7.8 g/dl (6.4-8.2)
[2017-12-27] MEDS ORDERED: AMOX TR/POT CLAV 875MG/125MG TABLETS (FP) PO ONE (12:47)
[2017-12-27] MEDS ORDERED: AMOX TR/POT CLAV 875MG/125MG TABLETS (FP) ONE (13:30)
[2017-12-27] MEDS ORDERED: AMOX TR/POTASSIUM CLAVULANATE 600 MG/5 ML PO ONE ×2 (13:33→13:54)
== END 2017-12-27 14:26 | disposition home or self-care (01) ==
LOC: JER 10:48
DX: J36 Peritonsillar abscess (principal); Z87.891 Personal history of nicotine dependence
CPT/HCPCS: 36415; 80053; 85025; 99281-25

== ENCOUNTER 2018-11-17 13:24 | Emergency (ER) | payer SELFPAY ==
[2018-11-17 13:48] VITALS: TEMP 97.8; BMI 26.6
[2018-11-17] MEDS ORDERED: ONDANSETRON 4 MG/2 ML VIAL IVPUSH ONE (14:15)
[2018-11-17] MEDS ORDERED: ACETAMINOPHEN 1000 MG/100 ML VIAL (NON FORMULARY) IVPB ONE (14:15)
[2018-11-17] MEDS ORDERED: SODIUM CHLORIDE 0.9% 500 ML INFUS.BAG IV ONE (14:15)
[2018-11-17] MEDS ORDERED: FAMOTIDINE 20 MG/50 ML IVPB 20 MG/50 ML MG IVPB ONE ×2 (14:34→15:03)
[2018-11-17] MEDS ORDERED: ONDANSETRON 4 MG/2 ML VIAL ONE (15:03)
[2018-11-17] MEDS ORDERED: ACETAMINOPHEN INJECTION 100 ML IVPB ONE (15:03)
[2018-11-17 15:08] LABS: BASO % 0.6 % (0-2.0); EOS % 0.7 % (0-4.5); HEMATOCRIT 41.9 % (32.4-45.2); LYMPH % 14.5 % (8-40); MCH 30.8 pg (25.7-33.7); MCHC 33.5 g/dl (32.0-36.0); MEAN PLT VOLUME 10.7 fl (7.5-11.1); MONO % 3.5 % (3.8-10.2); NEUT % 80.7 % (42.8-82.8); PLATELET COUNT 223 K/MM3 (134-434); RBC 4.55 M/mm3 (3.60-5.2); RDW 13.8 % (11.6-15.6); WHITE BLOOD COUNT 11.5 K/mm3 (4.0-10.0)
[2018-11-17 15:38] LABS: ALBUMIN 4.1 g/dl (3.4-5.0); ALK PHOS 89 U/L (45-117); ANION GAP 5 MMOL/L (8-16); BILIRUBIN,TOTAL 0.4 mg/dL (0.2-1); BLOOD UREA NITROGEN 12 mg/dL (7-18); CALCIUM 9.3 mg/dL (8.5-10.1); CHLORIDE 108 mmol/L (98-107); CO2 25 mmol/L (21-32); CREATININE 0.7 mg/dL (0.55-1.3); GLUCOSE,RANDOM 110 mg/dL (74-106); LIPASE 107 U/L (73-393); POTASSIUM 4.7 mmol/L (3.5-5.1); SGOT/AST 28 U/L (15-37); SGPT/ALT 38 U/L (13-61); SODIUM 138 mmol/L (136-145); TOT PROT 8.6 g/dl (6.4-8.2)
--- NOTE | 2018-11-17 15:45 | PDOC ---
History of Present Illness - General Chief Complaint: Nausea/Vomiting Stated Complaint: VOMITING - History of Present Illness Initial Comments: The pt is a 33F w/ a history of C/S who presents for evaluation of 1 day of N/V , generalized abdominal discomfort/cramping, and lightheadedness s/p drinking a 40 of [place] last night. She woke this AM and has since had multiple episodes of NBNB emesis. She reports not being able to keep fluids down. Denies fevers/ chills, chest pain, trouble breathing, diarrhea, dysuria, hematuria, or changes in sensation. Denies falls or trauma. 11/17/18 15:48 Past History - Past Medical History Allergies/Adverse Reactions: Allergies Allergy/AdvReac Type Severity Reaction Status Date / Time tomato Allergy Severe Hives Verified 12/27/17 10:49 Home Medications: Ambulatory Orders NK [No Known Home Medication] 11/17/18 Asthma: No Cancer: No Cardiac Disorders: No COPD: No DVT: No Diabetes: No HTN: No Seizures: No Thyroid Disease: No - Suicide/Smoking/Psychosocial Hx Smoking Status: Yes Smoking History: Current every day smoker Have you smoked in the past 12 months: Yes Number of Cigarettes Smoked Daily: 3 If you are a former smoker, when did you quit?: 1 year ago Information on smoking cessation initiated: Yes 'Breaking Loose' booklet given: 07/07/15 Hx Alcohol Use: Yes (States only last pm) Drug/Substance Use Hx: No Substance Use Type: None Hx Substance Use Treatment: No Review of Systems - Review of Systems Able to Perform ROS?: Yes Comments:: GENERAL/CONSTITUTIONAL: No fever or chills HEAD, EYES, EARS, NOSE AND THROAT: No change in vision. No ear pain or discharge. No sore throat CARDIOVASCULAR: No chest pain or shortness of breath RESPIRATORY: Denies cough, hemoptysis GASTROINTESTINAL: No diarrhea or constipation GENITOURINARY: No dysuria, frequency, or change in urination MUSCULOSKELETAL: No joint or muscle swelling or pain. No neck or back pain SKIN: No rash NEUROLOGIC: No headache, vertigo, loss of consciousness, or change in strength/ sensation ENDOCRINE: No increased thirst. No abnormal weight change HEMATOLOGIC/LYMPHATIC: No anemia, easy bleeding, or history of blood clots ALLERGIC/IMMUNOLOGIC: No hives or skin allergy 11/17/18 15:52 Is the patient limited Chinese proficient: No *Physical Exam - Vital Signs Last Vital Signs Temp Pulse Resp BP Pulse Ox 97.8 F 110 H 20 110/78 100 11/17/18 13:45 11/17/18 13:45 11/17/18 13:45 11/17/18 13:45 11/17/18 13:45 - Physical Exam Comments: GENERAL: Awake, alert, and oriented to person/place/time, in no acute distress HEAD: No signs of trauma, normocephalic, atraumatic EYES: PERRLA, EOMI, sclera anicteric, conjunctiva clear ENT: Hearing grossly normal, nares patent, oropharynx clear without exudates. Moist mucosa LUNGS: No distress, speaks full sentences, clear to auscultation bilaterally HEART: Regular rate and rhythm, normal S1 and S2, no murmurs appreciated, peripheral pulses normal and equal bilaterally ABDOMEN: Soft, generalized TTP w/o rebound or guarding; normoactive bowel sounds EXTREMITIES: Normal inspection, Normal range of motion, no edema. No clubbing or cyanosis NEUROLOGICAL: Cranial nerves II through XII grossly intact. Normal speech, no focal sensorimotor deficits SKIN: Warm, Dry 11/17/18 15:55 ED Treatment Course - LABORATORY CBC & Chemistry Diagram: 11/17/18 15:00 11/17/18 15:00 - ADDITIONAL ORDERS Additional order review: Laboratory Results 11/17/18 11/17/18 15:00 15:00 Sodium 138 Potassium 4.7 Chloride 108 H Carbon Dioxide 25 Anion Gap 5 L BUN 12 Creatinine 0.7 Creat Clearance w eGFR 96.97 Random Glucose 110 H Calcium 9.3 Total Bilirubin 0.4 AST 28 ALT 38 Alkaline Phosphatase 89 Total Protein 8.6 H Albumin 4.1 Lipase 107 Serum , Qual Cancelled 11/17/18 15:00 RBC 4.55 MCV 92.0 MCHC 33.5 RDW 13.8 MPV 10.7 Neutrophils % 80.7 Lymphocytes % 14.5 D Monocytes % 3.5 L Eosinophils % 0.7 Basophils % 0.6 - Medications Given in the ED: ED Medications Discontinued Medications Generic Name Dose Route Start Last Admin Trade Name Freq PRN Reason Stop Dose Admin Acetaminophen 1,000 mg 11/17/18 14:15 11/17/18 15:15 Ofirmev Injection - IVPB 11/17/18 14:16 1,000 mg ONCE ONE Administration Ondansetron HCl 4 mg 11/17/18 14:15 11/17/18 15:15 Zofran Injection IVPUSH 11/17/18 14:16 4 mg ONCE ONE Administration Sodium Chloride 1,000 ml 11/17/18 14:15 11/17/18 15:15 Normal Saline - IV 11/17/18 14:16 1,000 ml ONCE ONE Administration Medical Decision Making - Medical Decision Making The pt is a 33F w/ a history of C/S who presents for evaluation of 1 day of N/V , malaise, and generalized abdominal pain likely 2/2 veisalgia ED Course Labs sent IVF Zofran Pepcid Ofirmev 11/17/18 15:57 Pt feels improved s/p IVF and meds Tolerating PO in ED Lytes wnl No leukocytosis No anemia No NORMAN LFTs wnl Upreg neg UA w/o evidence of UTI Plan for D/C w/ PCP f/u Discharge instructions and return precautions given Pt in agreement and verbalized understanding Dispo: home 11/17/18 18:08 *DC/Admit/Observation/Transfer Diagnosis at time of Disposition: Nausea and vomiting Qualifiers: Vomiting type: unspecified Vomiting Intractability: non-intractable Qualified Code(s): R11.2 - Nausea with vomiting, unspecified - Discharge Dispostion Disposition: HOME Condition at time of disposition: Stable Decision to Admit order: No - Referrals Referrals: Elier Leonard [Primary Care Provider] - - Patient Instructions Printed Discharge Instructions: How to Beat a Hangover Additional Instructions: You were seen in the Emergency Department for evaluation of nausea and vomiting. Your labs were unremarkable. Review the handout provided at discharge. Return to the Emergency Department if you develop fevers/chills, vision changes, inability to tolerate food/drink, worsening symptoms, or any new /concerning symptoms. - Post Discharge Activity
--- NOTE | 2018-11-17 16:28 | PDOC ---
Documentation entered by Anna Bettencourt SCRIBE, acting as scribe for Laura Ventura MD. Laura Ventura MD: This documentation has been prepared by the Sg appiah Daisy, SCRIBE, under my direction and personally reviewed by me in its entirety. I confirm that the documentation accurately reflects all work, treatment, procedures, and medical decision making performed by me. Attending Attestation - Resident Resident Name: Luis Arzola - ED Attending Attestation I have performed the following: I have examined & evaluated the patient, The case was reviewed & discussed with the resident, I agree w/resident's findings & plan - HPI HPI: 11/17/18 14:55 The patient is a 33 YOF with no PMH who presents to the ER with abdominal pain and multiple episodes of vomit. Patient reports her vomit is nonbloody, nonbilious with associated diffuse abdominal pain. She reports drinking a bottle of [place] last night and notes that she does not usually drink that much. She states she usually drinks approximately once a month. no f/c no urinary complaints. states is not pregnany h/o tubal ligation. states she sometimes has rlq pain near her c section scar but that she has had this for some time. Allergies: NKDA PCP: Dr. Elier Leonard 11/17/18 16:25 - Physicial Exam PE: 11/17/18 16:26 awake alert lungs clear bilaterally heart rrr no mrg abd soft nontender nondistended. no palp hernia. ext wwp no edema. skin warm and dry no rash. - Medical Decision Making 11/17/18 16:27 33 yo F with h/o recent heavy etoh intake here with n/v/. differential hypokalemia, etoh tox, dehyration uti, gastritis, plan labs zofran ivf, pepcid. reassess. pt labs unremarkable. given 1 L NS, pepcid. states feel mildly improved.. will given fluid and crackers trial po. 11/17/18 17:57 pt feels better. tolerating po drinking gingerale. given toradol for headache. will dc home.
[2018-11-17 16:53] LABS: URINE APPEARANCE CLEAR; URINE BILIRUBIN NEGATIVE (NEGATIVE); URINE COLOR YELLOW; URINE GLUCOSE (UA) NEGATIVE (NEGATIVE); URINE KETONE NEGATIVE (NEGATIVE); URINE LEUK ESTERASE NEGATIVE (NEGATIVE); URINE NITRITE NEGATIVE (NEGATIVE); URINE PROTEIN NEGATIVE (NEGATIVE)
[2018-11-17] MEDS ORDERED: KETOROLAC TROMETHAMINE 30 MG/1 ML VIAL IVPUSH ONE (17:57)
[2018-11-17] MEDS ORDERED: KETOROLAC TROMETHAMINE 30 MG/1 ML VIAL ONE (18:14)
[2018-11-17 18:26] VITALS: BP 123/78; PULSE 84
== END 2018-11-17 18:26 | disposition home or self-care (01) ==
LOC: JER 13:24
PROC: 3E033GC Introduction of Other Therapeutic Substance into Peripheral Vein, Percutaneous Approach (ICD-10-PCS; principal; 2018-11-17)
PROC: 3E033NZ Introduction of Analgesics, Hypnotics, Sedatives into Peripheral Vein, Percutaneous Approach (ICD-10-PCS; 2018-11-17)
PROC: 3E033GC Introduction of Other Therapeutic Substance into Peripheral Vein, Percutaneous Approach (ICD-10-PCS; 2018-11-17)
DX: R11.2 Nausea with vomiting, unspecified (principal); F10.10 Alcohol abuse, uncomplicated
CPT/HCPCS: 36415; 80053; 81003; 83690; 84703; 85025; 87086; 99282-25; J0131

== ENCOUNTER 2020-06-23 18:34 | Emergency (ER) | payer OTHER ==
[2020-06-23 18:50] VITALS: BP 136/78; PULSE 86; TEMP 97.7; BMI 33.0
== END 2020-06-23 19:35 | disposition home or self-care (01) ==
LOC: JER 18:34 → MERGE 18:34 → JER 19:35
DX: Z03.818 Encounter for observation for suspected exposure to other biological agents ruled out (principal); R43.0 Anosmia; R52 Pain, unspecified
CPT/HCPCS: 99283-25; C9803; U0003

== ENCOUNTER 2020-07-23 01:28 | Emergency (ER) | payer OTHER ==
[2020-07-23 01:48] VITALS: BMI 34.4
[2020-07-23] MEDS ORDERED: ACETAMINOPHEN 1000 MG/100 ML VIAL (NON FORMULARY) IVPB ONE (02:16)
[2020-07-23] MEDS ORDERED: SODIUM CHLORIDE 1,000 ML IV STA (02:16)
[2020-07-23] MEDS ORDERED: FAMOTIDINE 20 MG/50 ML IVPB 20 MG/50 ML MG IVPB ONE ×2 (02:16→03:10)
[2020-07-23] MEDS ORDERED: ONDANSETRON 4 MG/2 ML VIAL IVPUSH ONE (02:16)
[2020-07-23] MEDS ORDERED: ACETAMINOPHEN INJECTION 100 ML IVPB ONE (03:09)
[2020-07-23] MEDS ORDERED: ONDANSETRON 4 MG/2 ML VIAL ONE (03:10)
[2020-07-23 03:38] LABS: BASO % 0.6 % (0-2.0); EOS % 0.3 % (0-4.5); HEMATOCRIT 39.2 % (32.4-45.2); HEMOGLOBIN 13.1 GM/dL (10.7-15.3); LYMPH % 16.6 % (8-40); MCH 30.9 pg (25.7-33.7); MCHC 33.5 g/dl (32.0-36.0); MEAN CELL VOLUME 92.2 fl (80-96); MEAN PLT VOLUME 10.7 fl (7.5-11.1); MONO % 4.3 % (3.8-10.2); NEUT % 78.2 % (42.8-82.8); PLATELET COUNT 179 K/MM3 (134-434); RBC 4.25 M/mm3 (3.60-5.2); RDW 13.8 % (11.6-15.6); WHITE BLOOD COUNT 11.1 K/mm3 (4.0-10.0)
[2020-07-23 03:56] LABS: POTASSIUM 3.7 mmol/L (3.5-5.1)
[2020-07-23 03:59] LABS: CALCIUM 8.6 mg/dL (8.5-10.1)
[2020-07-23 04:00] LABS: BLOOD UREA NITROGEN 15.3 mg/dL (7-18)
[2020-07-23 04:03] LABS: CREATININE 0.7 mg/dL (0.55-1.3)
[2020-07-23 04:05] LABS: BILIRUBIN,TOTAL 0.2 mg/dL (0.2-1)
[2020-07-23 06:11] VITALS: TEMP 98.2
[2020-07-23 06:48] VITALS: BP 110/82; PULSE 86
== END 2020-07-23 06:49 | disposition home or self-care (01) ==
LOC: JER 01:28 → MERGE 01:28 → JER 06:49
PROC: 3E0333Z Introduction of Anti-inflammatory into Peripheral Vein, Percutaneous Approach (ICD-10-PCS; principal; 2020-07-23)
PROC: 3E033GC Introduction of Other Therapeutic Substance into Peripheral Vein, Percutaneous Approach (ICD-10-PCS; 2020-07-23)
PROC: 3E033GC Introduction of Other Therapeutic Substance into Peripheral Vein, Percutaneous Approach (ICD-10-PCS; 2020-07-23)
PROC: 3E0337Z Introduction of Electrolytic and Water Balance Substance into Peripheral Vein, Percutaneous Approach (ICD-10-PCS; 2020-07-23)
DX: R10.13 Epigastric pain (principal); R11.0 Nausea; F10.129 Alcohol abuse with intoxication, unspecified
CPT/HCPCS: 36415; 80053; 85025; 96361; 96374; 96375; 99284-25; J0131

== ENCOUNTER 2020-09-26 18:06 | Emergency (ER) | payer OTHER ==
[2020-09-26 18:21] VITALS: BP 120/76; PULSE 95; TEMP 99; BMI 32.8
[2020-09-26 18:52] LABS: EOS % 2.9 % (0-4.5); HEMATOCRIT 39.9 % (32.4-45.2); HEMOGLOBIN 13.1 GM/dl (10.7-15.3); LYMPH % 35.5 % (8-40); MCH 30.1 pg (25.7-33.7); MCHC 32.9 g/dl (32.0-36.0); MEAN CELL VOLUME 91.5 fl (80-96); MONO % 5.6 % (3.8-10.2); PLATELET COUNT 216 K/MM3 (134-434); RBC 4.36 M/mm3 (3.60-5.2); RDW 12.9 % (11.6-15.6); WHITE BLOOD COUNT 9.7 K/mm3 (4.0-10.8)
[2020-09-26 19:05] LABS: ALBUMIN 4.1 g/dl (3.4-5.0); BILIRUBIN,TOTAL 0.6 mg/dl (0.2-1); CALCIUM 9.2 mg/dl (8.5-10); CREATININE 0.7 mg/dl (0.55-1.3); TOT PROT 7.6 g/dl (6.4-8.2)
== END 2020-09-26 20:05 | disposition home or self-care (01) ==
LOC: SUPCPDRO 18:06 → FER 18:06
DX: R07.89 Other chest pain (principal)
CPT/HCPCS: 36415; 71046-TC-FY; 80053; 81003; 84484; 84703; 85025; 87086; 87804; 93005; 99285-25; C9803; U0003

== ENCOUNTER 2021-05-11 22:36 | Emergency (ER) | payer OTHER ==
[2021-05-11] MEDS ORDERED: SODIUM CHLORIDE 1,000 ML IV ONE (22:55)
[2021-05-11 22:56] VITALS: BP 114/75; PULSE 99; TEMP 98; BMI 34.7
[2021-05-11 23:24] LABS: BASO % 1.5 % (0-2.0); EOS % 2.8 % (0-4.5); HEMATOCRIT 38.5 % (32.4-45.2); LYMPH % 38.1 % (8-40); MCH 30.8 pg (25.7-33.7); MCHC 33.8 g/dl (32.0-36.0); MEAN PLT VOLUME 10.5 fl (7.5-11.1); MONO % 5.8 % (3.8-10.2); NEUT % 51.8 % (42.8-82.8); PLATELET COUNT 209 10^3/uL (134-434); RBC 4.23 M/mm3 (3.60-5.2); RDW 12.7 % (11.6-15.6); WHITE BLOOD COUNT 10.8 K/mm3 (4.0-10.8)
[2021-05-11 23:40] LABS: ALBUMIN 4.1 g/dl (3.4-5.0); BILIRUBIN,TOTAL 0.4 mg/dl (0.2-1); CALCIUM 9.5 mg/dl (8.5-10); CREATININE 0.7 mg/dl (0.55-1.3); TOT PROT 7.6 g/dl (6.4-8.2)
[2021-05-11] MEDS ORDERED: ACETAMINOPHEN 1000 MG/100 ML VIAL IVPB ONE (23:48)
[2021-05-11] MEDS ORDERED: ACETAMINOPHEN INJECTION 100 ML IVPB ONE (23:56)
[2021-05-12] MEDS ORDERED: morphine CARPU-JECT 2 MG/1 ML DISP.SYRIN IVPUSH ONE (01:13)
[2021-05-12] MEDS ORDERED: morphine SULFATE 4 MG/ML VIAL ONE (01:25)
== END 2021-05-12 02:20 | disposition home or self-care (01) ==
LOC: FER 22:36
PROC: 3E0333Z Introduction of Anti-inflammatory into Peripheral Vein, Percutaneous Approach (ICD-10-PCS; principal; 2021-05-11)
PROC: 3E033NZ Introduction of Analgesics, Hypnotics, Sedatives into Peripheral Vein, Percutaneous Approach (ICD-10-PCS; 2021-05-11)
PROC: 3E0337Z Introduction of Electrolytic and Water Balance Substance into Peripheral Vein, Percutaneous Approach (ICD-10-PCS; 2021-05-11)
DX: R07.81 Pleurodynia (principal)
CPT/HCPCS: 36415; 71045-TC-FY; 71275-TC; 80053; 83605; 85025; 96361; 96374; 96375; 99285-25; J0131; Q9967

== ENCOUNTER 2021-07-27 13:53 | Emergency (ER) | payer OTHER ==
[2021-07-27 14:11] VITALS: BP 124/70; PULSE 85; TEMP 98; BMI 35.5
[2021-07-27] MEDS ORDERED: IBUPROFEN 400 MG TABLET (FP) PO ONE ×2 (14:26→14:48)
== END 2021-07-27 15:31 | disposition home or self-care (01) ==
LOC: FER 13:53
DX: M25.561 Pain in right knee (principal); W00.0XXA Fall on same level due to ice and snow, initial encounter
CPT/HCPCS: 73564-TC-RT-FY; 99283-25

== ENCOUNTER 2023-09-17 04:35 | Inpatient (IN) | payer OTHER ==
[2023-09-17] MEDS ORDERED: MIDAZOLAM HCL 2 MG/2 ML SINGLE DOSE VIAL ONE (08:48)
[2023-09-17] MEDS ORDERED: PROPOFOL 20 ML ONE (08:48)
[2023-09-17] MEDS ORDERED: SEVOFLURANE 250 ML BTL ONE (08:49)
[2023-09-17] MEDS ORDERED: DEXAMETHASONE SOD PHOSPHATE 4 MG/1 ML VIAL ONE (08:49)
[2023-09-17] MEDS ORDERED: ALBUTEROL SO4 HFA INHALER IH ONE (08:49)
[2023-09-17] MEDS ORDERED: ONDANSETRON 4 MG/2 ML VIAL ONE (08:49)
[2023-09-17] MEDS ORDERED: LIDOCAINE HCL/PF 2% SDV 5ML VIAL ONE (08:49)
[2023-09-17] MEDS ORDERED: GENTAMICIN SO4 80 MG/2 ML VIAL ONE (09:00)
[2023-09-17] MEDS ORDERED: LIDOCAINE 1%/EPI 1:100000 (20 ML MULTI DOSE VIAL) ONE (09:00)
[2023-09-17] MEDS: LIDOCAINE 1%/EPI 1:100000 (20 ML MULTI DOSE VIAL) IJ ONE (09:11)
[2023-09-17] MEDS: ceFAZolin SODIUM 1 GM VIAL IVPB ONE (09:11)
[2023-09-17] MEDS ORDERED: ceFAZolin SODIUM 1 GM VIAL ONE (09:11)
[2023-09-17] MEDS: GENTAMICIN SO4 80 MG/2 ML VIAL IVPB ONE (09:19)
[2023-09-17] MEDS ORDERED: KETOROLAC TROMETHAMINE 30 MG/1 ML VIAL ONE (09:28)
[2023-09-17] MEDS: BACITRACIN ZINC 15 GM TUBE TOPICAL OINTMENT TP ONE (09:33)
[2023-09-17] MEDS ORDERED: ONDANSETRON 4 MG/2 ML VIAL IVPUSH PRN (09:48)
[2023-09-17] MEDS ORDERED: ACETAMINOPHEN INJECTION 100 ML IVPB ONE (10:14)
[2023-09-17] MEDS: ACETAMINOPHEN 1000 MG/100 ML BAG IVPB ONE (10:15)
[2023-09-17] MEDS: LACTATED RINGERS SOLUTION 1,000 ML IV SCH (11:20)
[2023-09-17 11:36] VITALS: RESP 18
[2023-09-17] MEDS ORDERED: oxyCODONE HCL 5 MG TABLET ONE (11:40)
[2023-09-17] MEDS: oxyCODONE HCL 5 MG TABLET PO PRN (11:41)
[2023-09-17 17:31] VITALS: BMI 36.5
[2023-09-17] MEDS: DEXTROSE 5%-0.45% SALINE 1,000 ML IV SCH (17:43)
[2023-09-17 17:58] LABS: BASO % 0.4 % (0-2.0); EOS % 0.1 % (0-4.5); HEMATOCRIT 35.5 % (32.4-45.2); HEMOGLOBIN 11.6 GM/dL (10.7-15.3); LYMPH % 7.6 % (8-40); MCH 29.4 pg (25.7-33.7); MCHC 32.6 g/dl (32.0-36.0); MEAN PLT VOLUME 10.2 fl (7.5-11.1); MONO % 1.4 % (3.8-10.2); NEUT % 90.5 % (42.8-82.8); PLATELET COUNT 204 10^3/uL (134-434); RBC 3.94 M/mm3 (3.60-5.2); WHITE BLOOD COUNT 12.8 K/mm3 (4.0-10.0)
[2023-09-17 18:14] LABS: CALCIUM 9.1 mg/dL (8.5-10.1)
[2023-09-17 18:15] LABS: ALBUMIN 3.2 g/dl (3.4-5.0); BLOOD UREA NITROGEN 10.8 mg/dL (7-18)
[2023-09-17 18:18] LABS: CREATININE 0.9 mg/dL (0.55-1.3)
[2023-09-17 18:19] LABS: TOT PROT 6.9 g/dl (6.4-8.2)
[2023-09-17 18:20] LABS: BILIRUBIN,TOTAL 0.2 mg/dL (0.2-1)
[2023-09-17] MEDS: PRAMIPEXOLE DIHYDROCHLORIDE 0.25 MG TABLET PO SCH (22:05)
[2023-09-17] MEDS: TOPIRAMATE 25 MG TABLET PO SCH (22:05)
[2023-09-18] MEDS: ACETAMINOPHEN 1000 MG/100 ML BAG IVPB PRN (06:00)
[2023-09-18 10:08] LABS: BASO % 0.2 % (0-2.0); EOS % 0.8 % (0-4.5); HEMATOCRIT 33.7 % (32.4-45.2); LYMPH % 25.9 % (8-40); MCH 29.6 pg (25.7-33.7); MCHC 32.8 g/dl (32.0-36.0); MEAN CELL VOLUME 90.1 fl (80-96); MEAN PLT VOLUME 10.2 fl (7.5-11.1); MONO % 6.2 % (3.8-10.2); NEUT % 66.9 % (42.8-82.8); PLATELET COUNT 190 10^3/uL (134-434); RBC 3.74 M/mm3 (3.60-5.2); RDW 14.1 % (11.6-15.6); WHITE BLOOD COUNT 13.7 K/mm3 (4.0-10.0)
[2023-09-18 10:24] LABS: ALBUMIN 3.1 g/dl (3.4-5.0); CALCIUM 8.5 mg/dL (8.5-10.1)
[2023-09-18 10:25] LABS: BLOOD UREA NITROGEN 9.4 mg/dL (7-18)
[2023-09-18 10:30] LABS: BILIRUBIN,TOTAL 0.3 mg/dL (0.2-1); CREATININE 0.6 mg/dL (0.55-1.3)
[2023-09-18 10:32] LABS: TOT PROT 6.6 g/dl (6.4-8.2)
[2023-09-18 10:35] LABS: IRON SERUM 36 ug/dL (50-175); TOTAL IRON BINDING CAPACITY 287 ug/dL (250-450)
[2023-09-18 12:21] VITALS: BP 128/65; PULSE 79; TEMP 98.1
== END 2023-09-18 12:42 | disposition home or self-care (01) | DRG 514 ==
LOC: JASU-SURG 04:35 → J2C 14:50 → J6S 17:23
PROVIDERS: ADMIT Internal Medicine; ATTEND Internal Medicine
PROC: 0JQC3ZZ Repair Pelvic Region Subcutaneous Tissue and Fascia, Percutaneous Approach (ICD-10-PCS; 2023-09-17)
PROC: 0TSD4ZZ Reposition Urethra, Percutaneous Endoscopic Approach (ICD-10-PCS; principal; 2023-09-17 10:00)
DX: N81.10 Cystocele, unspecified (principal); G25.81 Restless legs syndrome; G43.909 Migraine, unspecified, not intractable, without status migrainosus; J45.909 Unspecified asthma, uncomplicated; N39.3 Stress incontinence (female) (male)
CPT/HCPCS: 36415; 80053; 81025; 83540; 83550; 85025; 94760; 97116-GP; 97162-GP; C1771; J0131

== ENCOUNTER 2023-10-01 04:06 | Day surgery (SDC) | payer OTHER ==
[2023-09-26 09:59] VITALS: BMI 36.4
[2023-10-01] MEDS ORDERED: LIDOCAINE 1%/EPI 1:100000 (20 ML MULTI DOSE VIAL) ONE (09:07)
[2023-10-01] MEDS ORDERED: GENTAMICIN SO4 80 MG/2 ML VIAL ONE (09:11)
[2023-10-01] MEDS ORDERED: PROPOFOL 20 ML ONE ×2 (10:26→10:51)
[2023-10-01] MEDS ORDERED: GLYCOPYRROLATE 0.2 MG/1 ML VIAL ONE (10:26)
[2023-10-01] MEDS ORDERED: MIDAZOLAM HCL 2 MG/2 ML SINGLE DOSE VIAL ONE (10:26)
[2023-10-01] MEDS ORDERED: LIDOCAINE HCL/PF 2% SDV 5ML VIAL ONE (10:26)
[2023-10-01] MEDS ORDERED: oxyCODONE HCL 5 MG TABLET PO PRN (10:29)
[2023-10-01] MEDS ORDERED: PROMETHAZINE HCL 25 MG/1 ML VIAL IVPB PRN (10:29)
[2023-10-01] MEDS ORDERED: ONDANSETRON 4 MG/2 ML VIAL IVPUSH PRN (10:29)
[2023-10-01] MEDS ORDERED: LACTATED RINGERS SOLUTION 1,000 ML IV SCH (10:30)
[2023-10-01] MEDS ORDERED: ceFAZolin SODIUM 1 GM VIAL ONE (10:41)
[2023-10-01] MEDS ORDERED: SODIUM CHLORIDE 0.9% P/F 10 ML VIAL IJ ONE (10:41)
[2023-10-01] MEDS: ceFAZolin SODIUM 1 GM VIAL IVPB ONE (10:42)
[2023-10-01] MEDS ORDERED: CLINDAMYCIN 600MG PREMIX IVPB 600 MG/50 ML BAG IVPB ONE (10:45)
[2023-10-01] MEDS ORDERED: DEXAMETHASONE SOD PHOSPHATE 4 MG/1 ML VIAL ONE (10:45)
[2023-10-01] MEDS: LIDOCAINE 1%/EPI 1:100000 (50 ML MULTI DOSE VIAL) NR ONE (10:45)
[2023-10-01] MEDS ORDERED: ONDANSETRON 4 MG/2 ML VIAL ONE (10:45)
[2023-10-01] MEDS: GENTAMICIN SO4 80 MG/2 ML VIAL IVPB ONE (10:50)
[2023-10-01] MEDS ORDERED: ACETAMINOPHEN INJECTION 100 ML IVPB ONE (10:57)
[2023-10-01 13:40] VITALS: RESP 20
[2023-10-01] MEDS: oxyCODONE HCL 5 MG TABLET PO ONE (15:25)
[2023-10-01] MEDS ORDERED: oxyCODONE HCL 5 MG TABLET ONE (15:27)
[2023-10-01 15:36] VITALS: BP 104/60; PULSE 90; TEMP 98.4
== END 2023-10-01 16:18 | disposition home or self-care (01) ==
LOC: JASU-SURG 04:06
PROVIDERS: ATTEND Urology
PROC: 0TSD0ZZ Reposition Urethra, Open Approach (ICD-10-PCS; principal; 2023-10-01 08:00)
DX: N39.3 Stress incontinence (female) (male) (principal)
CPT/HCPCS: 81025; 88300-TC; 94760; J0131

== ENCOUNTER 2024-02-18 04:52 | Day surgery (SDC) | payer OTHER ==
[2024-02-15 14:42] VITALS: BMI 38.7
[2024-02-18] MEDS ORDERED: LIDOCAINE HCL/PF 2% SDV 5ML VIAL ONE (12:05)
[2024-02-18] MEDS ORDERED: PROPOFOL 20 ML ONE (12:06)
[2024-02-18] MEDS ORDERED: MIDAZOLAM HCL 2 MG/2 ML SINGLE DOSE VIAL ONE (12:06)
[2024-02-18] MEDS ORDERED: GENTAMICIN SO4 80 MG/2 ML VIAL ONE (12:55)
[2024-02-18] MEDS: ceFAZolin SODIUM 1 GM VIAL IVPB ONE (13:31)
[2024-02-18] MEDS: GENTAMICIN SO4 80 MG/2 ML VIAL IVPB ONE (13:40)
[2024-02-18] MEDS ORDERED: KETOROLAC TROMETHAMINE 30 MG/1 ML VIAL ONE (13:42)
[2024-02-18] MEDS ORDERED: LACTATED RINGERS SOLUTION 1,000 ML IV SCH (14:00)
[2024-02-18] MEDS ORDERED: oxyCODONE HCL 5 MG TABLET PO PRN ×2 (14:00)
[2024-02-18] MEDS ORDERED: PROMETHAZINE HCL 25 MG/1 ML VIAL IVPB PRN (14:00)
[2024-02-18] MEDS ORDERED: ONDANSETRON 4 MG/2 ML VIAL IVPUSH PRN (14:00)
[2024-02-18] MEDS: ACETAMINOPHEN 1000 MG/100 ML BAG IVPB ONE (14:09)
[2024-02-18 14:49] VITALS: RESP 16
[2024-02-18 16:48] VITALS: BP 106/65; PULSE 84; TEMP 98
== END 2024-02-18 17:00 | disposition home or self-care (01) ==
LOC: JASU-SURG 04:52
PROVIDERS: ATTEND Urology
PROC: 0UPH7JZ Removal of Synthetic Substitute from Vagina and Cul-de-sac, Via Natural or Artificial Opening (ICD-10-PCS; principal; 2024-02-18 12:00)
DX: T83.711A Erosion of implanted vaginal mesh to surrounding organ or tissue, initial encounter (principal)
CPT/HCPCS: 81025; 88300-TC; 94760; J0131